=== PATIENT | female | born 1985 | race Caucasian/White ===

== ENCOUNTER 2016-08-18 13:56 | Emergency (ER) | payer MEDICAID, OTHER ==
[2016-08-18 14:19] VITALS: BP 162/78; PULSE 79; RESP 17; TEMP 97.3; O2SAT 94
[2016-08-18] MEDS ORDERED: ONDANSETRON 4 MG/2 ML VIAL IVP ONE (16:00)
[2016-08-18] MEDS ORDERED: KETOROLAC 30 MG/1 ML SDV IVP ONE (16:00)
[2016-08-18] MEDS ORDERED: NS 1,000 ML IV ONE (16:00)
[2016-08-18] MEDS ORDERED: DIAZEPAM 10 MG/2 ML SYR IVP ONE (16:01)
[2016-08-18 16:21] LABS: % IMMATURE GRANULYOCYTES 0.2 % (0.0-1.1); ABSOLUTE IMMATURE GRANULOCYTES 0.01 10^3/uL (0.00-0.10); ADD DIFF? NO; ADD MORPH? NO; ADD SCAN? NO; ATYPICAL LYMPHOCYTE FLAG 30 (0-99); FRAGMENT RBC FLAG 0 (0-99); HEMATOCRIT 39.9 % (38.0-47.0); HEMOGLOBIN 13.9 g/dL (12.6-16.3); LEFT SHIFT FLG 0 (0-99); LIPEMIA HEMOLYSIS FLAG 90 (0-99); MEAN CELL HEMOGLOBIN 30.2 pg (27.9-34.1); MEAN CELL HEMOGLOBIN CONCENTR. 34.8 g/dL (32.4-36.7); MEAN CELL VOLUME 86.7 fL (81.5-99.8); MEAN PLATELET VOLUME 9.5 fL (8.7-11.7); PLATELET CLUMPS FLAG 0 (0-99); PLATELET COUNT 260 10^3/uL (150-400); RED CELL DISTRIBUTION WIDTH 13.2 % (11.5-15.2)
[2016-08-18 16:36] LABS: ANION GAP 10 mEq/L (8-16); CALCIUM 8.7 mg/dL (8.5-10.4); CARBON DIOXIDE 25 mEq/l (22-31); CHLORIDE 103 mEq/L (97-110); CREATININE 0.8 mg/dL (0.6-1.0); GLOMERULAR FILTRATION RATE > 60; GLUCOSE 86 mg/dL (70-100); POTASSIUM 4.1 mEq/L (3.5-5.2); SODIUM 138 mEq/L (134-144)
--- NOTE | 2016-08-18 17:27 | UCPHY ---
H & P Patient Type: New Chief Complaint Nursing Narrative: pelvic pain n/v menstruating now Time Seen by Provider: 08/18/16 15:51 HPI/ROS: This patient complains of dysmenorrhea and low back pain. She reports that she has been having irregular menses in terms of timing. She complains of pain with this menses started a few days ago with normal flow in terms of the bleeding but severe crampy discomfort in the pelvic region and low back pain that she feels is likely musculoskeletal in lumbar region right paraspinous location. She has no other associated symptoms except for nausea and vomiting she has vomited 10 times today. She reports that she sometimes vomits from pain and thinks that this is the reason she is vomiting today. She has been unable to keep any medications down so no ibuprofen Tylenol prior to arrival. ROS: No fevers. No other constitutional symptoms. HEENT: No complaints cardiopulmonary no complaints except for mild lightheadedness when standing. She reports no upper belly pain. No hematemesis. : No urinary symptoms. No vaginal discharge prior to her menses. Last menstrual period prior to this was July 28. Normal bowel movements except for loose stools x2 today. 10 point ROS is otherwise negative. Source: Patient Exam Limitations: No limitations - Personal History LMP (Females 10-55): Now Current Tetanus/Diphtheria Vaccine: Yes - Medical/Surgical History Hx Asthma: No Hx Chronic Respiratory Disease: No Hx Diabetes: No Hx Cardiac Disease: No Hx Renal Disease: No Hx Cirrhosis: No Hx Alcoholism: No Hx HIV/AIDS: No Hx Splenectomy or Spleen Trauma: No Other PMH: leap procedure - Family History Significant Family History: No pertinent family hx - Social History Smoking Status: Never smoked Alcohol Use: None Drug Use: None - Physical Exam Exam: General Appearance: Pleasant obese female Alert, no distress. Eyes: Pupils equal and round no pallor or injection. ENT, Mouth: Mucous membranes moist. Respiratory: There are no retractions, lungs are clear to auscultation. Cardiovascular: Regular rate and rhythm. Gastrointestinal: Normoactive, soft, mild tenderness in the right lower quadrant, moderate suprapubic and moderate left lower quadrant with no guarding or rebound. Back: Patient has paraspinous lumbar tenderness with muscle spasm on the right side no tenderness the sign neck notch. She has mild limitation range of motion in forward flexion. Neurological: Alert with no focal deficits 5 in 5 strength bilateral lower extremities great toe dorsiflexion plantar flexion. No focal light touch sensory deficits in lower extremities. Skin: Warm and dry, no rashes. Extremities are symmetrical, full range of motion. Psychiatric: Mood and affect are normal DIFFERENTIAL DIAGNOSIS: After history and physical exam differential diagnosis was considered for low back strain, sciatica, ectopic , dysmenorrhea, viral illness with gastroenteritis, dehydration Constitutional: Initial Vital Signs Temperature (C) 36.3 C 08/18/16 14:16 Heart Rate 79 08/18/16 14:16 Respiratory Rate 17 08/18/16 14:16 Blood Pressure 162/78 H 08/18/16 14:16 O2 Sat (%) 94 08/18/16 14:16 O2 Delivery Mode Room Air Allergies/Adverse Reactions: No Known Allergies Allergy (Verified 08/18/16 14:16) Home Medications: Medication Instructions Recorded Citalopram 08/18/16 Ibuprofen [Motrin (*)] 600 mg PO Q6 PRN #30 tab 08/18/16 Methocarbamol [Robaxin 750 mg (*)] 750 - 1,500 mg PO QID PRN #30 tab 08/18/16 Ondansetron Odt [Zofran Odt] 4 - 8 mg PO Q4PRN PRN #4 tab 08/18/16 oxyCODONE/APAP 5/325 [Percocet 1 - 2 tab PO Q4-6PRN PRN #20 tab 08/18/16 5/325 (*)] Medical Decision Making ED Course/Re-evaluation: Review of labs reveals normal CBC and chemistries. test is negative. IV normal saline bolus Zofran with resolution of nausea vomiting Toradol and Valium with improvement in her discomfort down to minimal discomfort at the time discharge. She tolerated p.o. intake without emesis. Discussion: Findings are most consistent with low back strain and dysmenorrhea. Also, vomiting with dehydration. I counseled patient regarding this. - Data Points Laboratory Results: Laboratory Results 08/18/16 16:15 08/18/16 16:15 08/18/16 16:15 WBC 5.28 10^3/uL (3.80-9.50) RBC 4.60 10^6/uL (4.18-5.33) Hgb 13.9 g/dL (12.6-16.3) Hct 39.9 % (38.0-47.0) MCV 86.7 fL (81.5-99.8) MCH 30.2 pg (27.9-34.1) MCHC 34.8 g/dL (32.4-36.7) RDW 13.2 % (11.5-15.2) Plt Count 260 10^3/uL (150-400) MPV 9.5 fL (8.7-11.7) Neut % (Auto) 77.4 H % (39.3-74.2) Lymph % (Auto) 16.3 % (15.0-45.0) Stevens % (Auto) 5.5 % (4.5-13.0) Eos % (Auto) 0.2 L % (0.6-7.6) Baso % (Auto) 0.4 % (0.3-1.7) Nucleat RBC Rel Count 0.0 % (0.0-0.2) Absolute Neuts (auto) 4.09 10^3/uL (1.70-6.50) Absolute Lymphs (auto) 0.86 L 10^3/uL (1.00-3.00) Absolute Monos (auto) 0.29 L 10^3/uL (0.30-0.80) Absolute Eos (auto) 0.01 L 10^3/uL (0.03-0.40) Absolute Basos (auto) 0.02 10^3/uL (0.02-0.10) Absolute Nucleated RBC 0.00 10^3/uL (0-0.01) Immature Gran % 0.2 % (0.0-1.1) Immature Gran # 0.01 10^3/uL (0.00-0.10) Sodium 138 mEq/L (134-144) Potassium 4.1 mEq/L (3.5-5.2) Chloride 103 mEq/L (97-110) Carbon Dioxide 25 mEq/l (22-31) Anion Gap 10 mEq/L (8-16) BUN 8 mg/dL (7-23) Creatinine 0.8 mg/dL (0.6-1.0) Estimated GFR > 60 Glucose 86 mg/dL (70-100) Calcium 8.7 mg/dL (8.5-10.4) Beta HCG, Qual NEGATIVE Medications Given: Discontinued Medications Diazepam (Valium Injection) 5 mg IVP EDNOW ONE Stop: 08/18/16 16:02 Last Admin: 08/18/16 16:34 Dose: 5 mg Sodium Chloride (Ns) 1,000 mls @ 0 mls/hr IV ONCE ONE PRN Reason: Wide Open Stop: 08/18/16 16:01 Last Admin: 08/18/16 16:20 Dose: 1,000 mls Ketorolac Tromethamine (Toradol) 30 mg IVP EDNOW ONE Stop: 08/18/16 16:01 Last Admin: 08/18/16 16:31 Dose: 30 mg Ondansetron HCl (Zofran) 4 mg IVP EDNOW ONE Stop: 08/18/16 16:01 Last Admin: 08/18/16 16:30 Dose: 4 mg Departure - Departure Disposition: Home, Routine, Self-Care Clinical Impression: Dehydration, Dysmenorrhea Condition: Good Instructions: Acute Low Back Pain (ED), Acute Nausea and Vomiting (ED) Additional Instructions: Diagnoses: 1. Vomiting 2. Dehydration 3. Dysmenorrhea 4. Low back pain Plan: Ibuprofen 400-600 mg per 6 hours regularly for the next week then as needed. Methocarbamol muscle relaxants as needed. Percocet or Tylenol as needed for pain. No driving alcohol or work on Percocet or methocarbamol Starts daily stretches prior to taking muscle relaxants and Vicodin in the morning. 3-5 minutes each of: "Butterfly stretch," "Sphinx stretch", "pigeon stretch", and hamstring stretch. Avoid lifting more than 5-10 pounds until symptoms improve. Call your primary care physician for a followup appointment in 3-7 days. Go to the emergency department for worsening of your symptoms despite the treatment plan. Referrals: Nasra Rapp MD [Primary Care Provider] - As per Instructions Prescriptions: Ibuprofen [Motrin (*)] 600 mg PO Q6 PRN #30 tab PRN Reason: Pain oxyCODONE/APAP 5/325 [Percocet 5/325 (*)] 1 - 2 tab PO Q4-6PRN PRN #20 tab PRN Reason: Pain Methocarbamol [Robaxin 750 mg (*)] 750 - 1,500 mg PO QID PRN #30 tab PRN Reason: Muscle Spasms Ondansetron Odt [Zofran Odt] 4 - 8 mg PO Q4PRN PRN #4 tab PRN Reason: Vomiting - PQRS PQRS Measurement: NA
== END 2016-08-18 17:39 | disposition home or self-care (01) ==
LOC: CED 13:56
DX: R11.2 Nausea with vomiting, unspecified (principal); E86.0 Dehydration; N94.6 Dysmenorrhea, unspecified; M54.5 Low back pain; N92.6 Irregular menstruation, unspecified
CPT/HCPCS: 80048-PO; 84703-PO; 85025-PO; 96361-PO; 96374-PO; 96375-PO; 99205-PO; G0463-PO; J1885; J2405